=== PATIENT | male | born 1970 | race Two or more races ===

== ENCOUNTER 2023-04-10 23:17 | Emergency (ER) | payer MEDICAID ==
[~2023-04-10] VITALS: Ht 170.2 cm; Wt 91.0 kg
[2023-04-10 23:19] VITALS: BP 158/97
== END 2023-04-11 02:27 | disposition left against medical advice (07) ==
LOC: ER 23:17
DX: K62.89 Other specified diseases of anus and rectum (principal); Z53.21 Procedure and treatment not carried out due to patient leaving prior to being seen by health care provider